=== PATIENT | male | born 1940 | race Caucasian/White ===

== ENCOUNTER 2023-07-15 22:12 | Emergency (ER) | payer OTHER ==
[2023-07-15 22:31] VITALS: TEMP 98
--- NOTE | 2023-07-15 23:02 | ED ---
General Adult HPI - General Stated complaint: Leg Swelling Time Seen by Provider: 07/15/23 22:14 Source: patient, EMS Mode of arrival: EMS Limitations: no limitations - History of Present Illness Initial comments: 82-year-old gentleman with end-stage renal disease on dialysis Sunday. Patient presented to the ER as a transfer from [facility] where he was evaluated for increasing left lower extremity edema. Patient has a history of a left popliteal DVT diagnosed in February of this year, he is currently on L Bay 5 mg twice a day. Per the patient's medical record and daughter he is compliant with this medication. They've apparently noticed worsening swelling in his left lower extremity which prompted his evaluation today. - Related Data Allergies Allergy/AdvReac Type Severity Reaction Status Date / Time No Known Allergies Allergy Verified 07/15/23 22:17 Review of Systems ROS Statement: Those systems with pertinent positive or pertinent negative responses have been documented in the HPI. ROS Other: All systems not noted in ROS Statement are negative. Past Medical History Smoking Status: Former smoker Past Alcohol Use History: Rare Past Drug Use History: None Reported General Exam Limitations: no limitations General appearance: alert Head exam: Present: atraumatic, normocephalic Eye exam: Present: PERRL ENT exam: Present: normal exam Respiratory exam: Present: decreased breath sounds (on right). Absent: respiratory distress Cardiovascular Exam: Present: regular rate GI/Abdominal exam: Present: soft Rectal exam: Present: deferred Extremities exam: Present: pedal edema, other (Bilateral lower extremity edema left greater than right) Neurological exam: Present: alert Psychiatric exam: Present: normal affect, normal mood Skin exam: Present: other (Chronic changes of bilateral lower extremity consistent with venous stasis) Course Vital Signs 07/15/23 07/16/23 22:13 00:00 Temperature 98.0 F 98.0 F Pulse Rate 95 62 Respiratory 16 18 Rate Blood Pressure 117/62 120/57 O2 Sat by Pulse 98 99 Oximetry Medical Decision Making - Medical Decision Making Was pt. sent in by a medical professional or institution (, PA, TACTICAL DECEPTION PLANS OFFICER, urgent care, hospital, or senior care...) When possible be specific @ -Yes, sent from [facility] emergency department Did you speak to anyone other than the patient for history (EMS, parent, family, police, friend...)? What history was obtained from this source @ -Transferring physician, EMS, patient's daughter Did you review nursing and triage notes (agree or disagree)? Why? @ -I reviewed and agree with nursing and triage notes Were old charts reviewed (outside hosp., previous admission, EMS record, old EKG, old radiological studies, urgent care reports/EKG's, senior care records)? Report findings @ -Transfer documents reviewed Differential Diagnosis (chest pain, altered mental status, abdominal pain women, abdominal pain men, vaginal bleeding, weakness, fever, dyspnea, syncope, headache, dizziness, GI bleed, back pain, seizure, CVA, palpatations, mental health)? @ -Acute DVT, chronic DVT, fluid overload secondary to end-stage renal disease, lymphedema, cellulitis EKG interpreted by me (3pts min.). @ -As above X-rays interpreted by me (1pt min.). @ -None done CT interpreted by me (1pt min.). @ -None done U/S interpreted by me (1pt. min.). @ -There is clot documented on ultrasound What testing was considered but not performed or refused? (CT, X-rays, U/S, labs)? Why? @ -None What meds were considered but not given or refused? Why? @ -None Did you discuss the management of the patient with other professionals (professionals i.e. , PA, TACTICAL DECEPTION PLANS OFFICER, lab, RT, psych nurse, social insurance administrator, hardening machine operator helper, teacher, facilities officer, pillowcase sewer)? Give summary @ -No Was smoking cessation discussed for >3mins.? @ -No Was critical care preformed (if so, how long)? @ -No Were there social determinants of health that impacted care today? How? (Homelessness, low income, unemployed, alcoholism, drug addiction, transportation, low edu. Level, literacy, decrease access to med. care, senior care, rehab)? @ -No Was there de-escalation of care discussed even if they declined (Discuss DNR or withdrawal of care, Hospice)? DNR status @ -No What co-morbidities impacted this encounter? (DM, HTN, Smoking, COPD, CAD, Cancer, CVA, ARF, Chemo, Hep., AIDS, mental health diagnosis, sleep apnea, morbid obesity)? @ -Chronic renal failure, end-stage renal disease on dialysis Was patient admitted / discharged? Hospital course, mention meds given and route, prescriptions, significant lab abnormalities, going to OR and other pertinent info. @ -Discharge The patient was seen and evaluated, patient with lower extremity edema left greater than right, duplex ultrasound was ordered and reviewed. There is evidence of a partially occlusive clot in the left femoral vein. These results were discussed with Dr. Ko vascular surgery who recommends continued L Bay and outpatient follow-up. States that this is likely a chronic occlusion no acute intervention is indicated at this time. Undiagnosed new problem with uncertain prognosis? @ -No Drug Therapy requiring intensive monitoring for toxicity (Heparin, Nitro, Insulin, Cardizem)? @ -No Were any procedures done? @ -No Diagnosis/symptom? @ -default Acute, or Chronic, or Acute on Chronic? @ -Acute on Chronic Uncomplicated (without systemic symptoms) or Complicated (systemic symptoms)? @ -default Side effects of treatment? @ -No Exacerbation, Progression, or Severe Exacerbation? @ -No Poses a threat to life or bodily function? How? (Chest pain, [place], [place], pneumonia, PE, COPD, DKA, ARF, appy, cholecystitis, CVA, Diverticulitis, Homicidal, Suicidal, threat to staff... and all critical care pts) @ -Yes, clot propagation and embolism possible Disposition Clinical Impression: Left femoral vein DVT Disposition: HOME SELF-CARE Condition: Stable Additional Instructions: Continue Eliquis 5mg BID Follow up with your primary care provider for management of Eliquis Is patient prescribed a controlled substance at d/c from ED?: No Referrals: None,Stated [Primary Care Provider] - 1-2 days
--- NOTE | 2023-07-15 23:56 | US ---
EXAM: US Duplex Bilateral Lower Extremities Veins CLINICAL HISTORY: ITS.REASON US Reason: Pain TECHNIQUE: Real-time duplex ultrasound scan of the bilateral lower extremity veins integrating B-mode two-dimensional vascular structure, Doppler spectral analysis, color flow Doppler imaging and compression. COMPARISON: No relevant prior studies available. FINDINGS: Right deep veins: Unremarkable. No DVT in the right common femoral, femoral, proximal deep femoral or popliteal veins. The veins demonstrate normal color flow, are normally compressible, with normal phasic flow and/or augmentation response. Right superficial veins: Unremarkable. No thrombus in the visualized right great saphenous vein. Left deep veins: Partially occlusive DVT left femoral vein. No DVT in the left common femoral, proximal deep femoral or popliteal veins. The veins demonstrate normal color flow, are normally compressible, with normal phasic flow and/or augmentation response. Left superficial veins: Unremarkable. No thrombus in the visualized left great saphenous vein. Soft tissues: No acute findings. No popliteal cyst. IMPRESSION: 1. Partially occlusive DVT in the left femoral vein. 2. No DVT in the right lower extremity. <MYCVCSECTION> Communications: 07/16/23 00:03 Verify Receipt Verified receipt with Cut Off Worker Nic; report going to Dr. Allen on 07/16 00:03 (-05:00)
[2023-07-16 00:31] VITALS: BP 120/57; PULSE 62; RESP 18
== END 2023-07-16 02:25 | disposition home or self-care (01) ==
LOC: EC 22:12
DX: I82.412 Acute embolism and thrombosis of left femoral vein (principal); Z87.891 Personal history of nicotine dependence
CPT/HCPCS: 93970; 99284